=== PATIENT | male | born 1990 | race Caucasian/White ===

== ENCOUNTER 2020-03-04 10:30 | Emergency (ER) | payer MEDICAID ==
[~2020-03-04] VITALS: Ht 175.3 cm; Wt 66.8 kg
[~2020-03-04 10:30] MED LIST: METH4TAB3 PO; METH500T PO
[2020-03-04 10:37] VITALS: BP 104/61
[2020-03-04] MEDS ORDERED: ondansetron 4mg rapidly disintigrating tab PO ONE (10:55)
[2020-03-04] MEDS ORDERED: ONDA4TAB6 PO (10:58)
[2020-03-04] MEDS ORDERED: DIPH-423 PO (10:58)
== END 2020-03-04 11:06 | disposition home or self-care (01) ==
LOC: ER 10:30
DX: F11.10 Opioid abuse, uncomplicated (principal); F32.9 Major depressive disorder, single episode, unspecified; F17.200 Nicotine dependence, unspecified, uncomplicated; Z56.0 Unemployment, unspecified; Z79.899 Other long term (current) drug therapy; Z00.01 Encounter for general adult medical examination with abnormal findings
CPT/HCPCS: 99283

== ENCOUNTER 2022-06-06 12:19 | Emergency (ER) | payer MEDICAID ==
[~2022-06-06] VITALS: Ht 175.3 cm; Wt 77.3 kg
[~2022-06-06 12:19] MED LIST changes: +DIPH-423 PO; +ONDA4TAB6 PO
[2022-06-06 12:42] VITALS: BP 138/86
[2022-06-06] MEDS ORDERED: HYDROcodone/acetaminophen 5mg/325mg tablet PO ONE (14:15)
[2022-06-06] MEDS ORDERED: amox tr/potassium clavulanate 875/125mg TAB PO ONE (14:15)
[2022-06-06] MEDS ORDERED: AMOX-117 PO ×3 (14:20→15:27)
[2022-06-06] MEDS ORDERED: HYDR-3965 PO ×3 (14:20→15:27)
== END 2022-06-06 15:01 | disposition home or self-care (01) ==
LOC: ER 12:20
DX: K04.7 Periapical abscess without sinus (principal); Z56.0 Unemployment, unspecified
CPT/HCPCS: 99283